=== PATIENT | female | born 1950 | race Caucasian/White ===

== ENCOUNTER → 2020-09-26 | Outpatient (CLI) | payer OTHER ==
[~2020-09-26] MED LIST: ALLER-EASE180 MG PO; BENICAR20 MG PO; CALCIUM 500 +1 EAC1 PO; GLUMETZA500 PO; IBUPROFEN 400400 M1 PO; LEVOXYL100 MCG PO; MULTI VITAMIN1 EACH PO; TYLENOL EXTRA500 MG PO; WELLBUTRIN SR150 M1 PO
== END ==
LOC: LAB 13:44
PROVIDERS: ATTEND Orthopaedic Surgery
DX: Z01.812 Encounter for preprocedural laboratory examination (principal); Z20.822 Contact with and (suspected) exposure to COVID-19

== ENCOUNTER → 2020-10-15 | Outpatient (CLI) | payer OTHER ==
[~2020-10-15] MED LIST changes: +GABAPENTIN 100100 MG PO
== END ==
LOC: LAB 08:13
PROVIDERS: ATTEND Orthopaedic Surgery
DX: Z01.812 Encounter for preprocedural laboratory examination (principal); Z20.822 Contact with and (suspected) exposure to COVID-19

== ENCOUNTER 2020-10-18 07:24 | Day surgery (SDC) | payer OTHER ==
[2020-09-26 13:22] LABS: HEMATOCRIT 45.4 % (37.0-47.0); HEMOGLOBIN 14.9 gm/dL (12.0-15.0); MCH 31.4 pg (26.0-34.0); MCHC 32.8 g/dL (28.0-37.0); MCV 95.6 fL (80.0-100.0); RBC 4.74 mil/uL (4.20-5.00); RDW 14.5 % (10.5-14.5); URINE BILIRUBIN NEGATIVE (Negative); URINE BLOOD NEGATIVE (Negative); URINE CLARITY CLEAR; URINE COLOR YELLOW; URINE GLUCOSE-RANDOM* NEGATIVE (Negative); URINE KETONES TRACE (Negative); URINE LEUKOCYTES-REFLEX NEGATIVE (Negative); URINE NITRITE-REFLEX NEGATIVE (Negative); URINE PROTEIN (DIPSTICK) NEGATIVE (Negative); URINE SPECIFIC GRAVITY 1.025 (1.005-1.035); URINE UROBILINOGEN 0.2 E.U./dl (0.2-1.0); WBC 9.7 thou/uL (4.0-11.0)
[2020-09-26 13:30] LABS: ALBUMIN 4.3 g/dL (3.4-5.0); CALCIUM 9.8 mg/dL (8.5-10.1)
[2020-09-26 13:37] LABS: PROTIME 11.2 Seconds (9.3-11.4)
[2020-09-26 22:06] LABS: GLYCOHEMOGLOBIN (HGB A1C) 6.2 % (4.8-5.6)
--- NOTE | 2020-09-27 07:16 | EKG ---
[address] [address] ELECTROCARDIOGRAM REPORT Name: NEGRITO GARCIA Room #: [facility]#: [id number] Admission: Attend Phys: Daniel James MD Discharge: Date of : 48 Report #: [id number] [facility] Test Date: 2020-09-26 Test Time: 13:11:27 Pat Name: NEGRITO GARCIA Department: Room: Gender: F Hot Oiler: Padma GUZMAN : 1950 Requested By: Daniel James Order Number: [id number] MD: Bruno Piedra Measurements Intervals [place] Rate: 81 P: 51 WV: 194 QRS: -41 QRSD: 95 T: 25 QT: 387 QTc: 450 Interpretive Statements Sinus rhythm Inferior infarct, old No previous ECG available for comparison Electronically Signed On 09-27-2020 7:15:54 CDT by Bruno Piedra [email or web address] <ELECTRONICALLY SIGNED> By: Bruno Piedra MD, [facility] 09/27/20 0715 1311 1311 Bruno Piedra MD, FACC /EPI
[2020-10-18] VITALS (7 sets, daily range): BP systolic 127–169; BP diastolic 76–97
[~2020-10-18] VITALS: Ht 160 cm; Wt 99.3 kg
--- NOTE | ~2020-10-18 | O ---
[facility] [place] [address] OPERATIVE REPORT Name: NEGRITO DICKSON Room #: 150-6 [facility].#: [id number] Admission: 10/18/20 Attend Phys: Daniel James MD Discharge: Date of : 48 Report #: [id number] THIS REPORT FOR: cc: Johanna Paetl MD, Karol L. MD Abraham,Daniel Vazquez MD ~ DATE OF SERVICE: 10/18/2020 PREOPERATIVE DIAGNOSIS: Right knee osteoarthritis. POSTOPERATIVE DIAGNOSIS: Right knee osteoarthritis. PROCEDURE: Right total knee arthroplasty using Navio robotic assistant associate professor. SURGEON: Daniel James MD. PRESSURE SUPERVISOR: Hallie Pulliam PA-C. INDICATIONS FOR PRESSURE SUPERVISOR: Throughout the case, extensive retraction and manipulation of the knee was required. This was afforded to me by my assistant associate professor. ANESTHESIA: LMA with an adductor canal block. IMPLANTS: [employer] size 4 Journey II BCS cobalt chrome femur, size 3 tibia, size 10 polyethylene, size 29 patella. TOURNIQUET TIME: 51 minutes. ESTIMATED BLOOD LOSS: 25 mL. COMPLICATIONS: None. SPECIMENS: None. CONDITION UPON LEAVING THE OPERATING ROOM: Stable. INDICATIONS FOR PROCEDURE: The patient is a 69-year-old female with right knee osteoarthritis. She had failed conservative measures for this and after discussion with her, she elected for right total knee arthroplasty. DESCRIPTION OF PROCEDURE: Risks, benefits, alternatives, complications were discussed in detail with the patient including but not limited to risk of anesthesia, risk of damage to nerves, arteries, blood vessels, risk for infection, bleeding, risk for continued knee pain and need for reoperation. Informed consent was obtained from the patient. Right knee was appropriately [address] [place] [address] OPERATIVE REPORT Name: NEGRITO DICKSON Room #: 150-6 [facility] Reji#: [id number] Admission: 10/18/20 Attend Phys: Daniel James MD Discharge: Date of : 48 Report #: [id number] marked in the preoperative holding area. IV Ancef was given for preoperative antibiotics. She was brought to the operating room and placed in the supine position on the operating room table. LMA anesthesia was induced without complication. Tourniquet was placed on the right thigh. Right lower extremity was prepped and draped in normal sterile fashion. Timeout was performed properly identifying the patient and procedure as well as the instrumentation and implants. All in the operating room were in agreement. Right lower extremity was exsanguinated, tourniquet was inflated. Tourniquet time was 51 minutes. Standard midline approach to the knee was made with 10 blade through the skin. Dissection was taken down sharply to the fascia and deep flaps were developed medially and laterally. Fresh 10 blade was used to make a medial parapatellar arthrotomy and the knee was inspected. There was [id number] tricompartmental osteoarthritis. ACL and PCL were removed sharply. Reference pins were placed in the femur and the tibia. Knee was then digitally mapped using the [employer] robotic system. Intraoperative plan was made, and we sized the size 4 femur, the size 3 tibia and a 10 spacer. After acceptance of the intraoperative plan, distal femoral cut was made with a Navio bur. Distal femoral cutting block was pinned in place and chamfer cuts were made. Attention was turned to the tibia. Remainder of the menisci removed with Bovie cautery. Tibial resection guide was pinned in place using the Navio for placement and tibial resection was made. Flexion and extension gaps were then checked and found to have equal balance in flexion and extension both medially and laterally. Tibia was sized, found to be a size 3. A size 3 tibial trial was placed, pinned and punched. Size 4 femoral trial was placed and the box cut was made. This was then trialed with a size 10 polyethylene. Size 10 polyethylene demonstrated 1-2 millimeter of laxity medially and laterally throughout range of motion of the knee. A 9 mm of bone was resected from the posterior surface of the patella and a size 29 patellar trial button was placed. Knee was taken through range of motion, found to be stable, found to have good patellar tracking. Trial components were removed. Bony ends were thoroughly irrigated with normal saline. A final size 3 tibia, size 4 Journey II BCS cobalt chrome femur and a size 29 patella were cemented in place using standard cementation techniques. While the cement cured, a periarticular injection consisting of morphine, ropivacaine, epinephrine, Toradol was placed around the knee joint capsule. After the cement cured, tourniquet was deflated. Hemostasis was obtained with Bovie cautery. Final size 10 polyethylene was placed. A gram of vancomycin was placed deep in the joint. Fascia was closed with 0 Vicryl, skin was closed with 2-0 Vicryl, skin staple and a GABINO dressing was applied. The patient tolerated this procedure well and went to recovery room under care of anesthesia postoperatively. By: 1132 1213 Daniel James MD /nt
--- NOTE | 2020-10-18 14:35 | NUR ---
ASSUMED PT CARE AROUND 1230. PT ALERT X ORIENTED X 4. ON 2L/O2/NC. IV RT HAND /D5NNS/100ML/HR.GABINO DRESSING IN PLACE. SCDS/TEDS ON. PT DAUGHTER IN THE ROOM. TOLERATING FLUIDS. ATE SANDWICH FOR LUNCH. FALL PRECAUTION IN PLACE. CALL LIGHT IN REACH. WAITING FOR PT EVALUATION. WILL CONTINUE TO MONITOR.
[2020-10-19] VITALS (9 sets, daily range): BP systolic 101–145; BP diastolic 63–80
--- NOTE | 2020-10-19 00:27 | NUR ---
ASSESSED AT START OF SHIFT. PT A&OX4 RATES PAIN 07/22 DENIES N/V. RT KNEE DRESSING C/D/I. GABINO DRESSING, POLAR PACK, SCD'S IN PLACE. PT UP WITH ASSITX1. EVENING MEDS GIVEN AND PT MERLE IT WELL. FALL PREC IN PLACE AND CALL LIGHT AT REACH. PT WEARS CPAP AT NIGHT TIME AND ON 2L O2. WILL CONT WITH POC TILL EOS.
[2020-10-19 04:50] LABS: HEMATOCRIT 35.7 % (37.0-47.0); HEMOGLOBIN 11.9 gm/dL (12.0-15.0); MCH 32.3 pg (26.0-34.0); MCHC 33.4 g/dL (28.0-37.0); MCV 96.8 fL (80.0-100.0); RBC 3.69 mil/uL (4.20-5.00); RDW 14.4 % (10.5-14.5); WBC 10.8 thou/uL (4.0-11.0)
--- NOTE | 2020-10-19 09:37 | NUR ---
ASSESSMENT: CM REVIEWED CHART AND MET WITH PATIENT AT THE BEDSIDE. PT IS ALERT AND ORIENTED X4. PT IS S/P R TKR. PT REPORTS THAT SHE LIVES IN A HOUSE WITH HER SON AND HAS NO STEPS TO GET IN OR ONCE INSIDE. PT REPORTS THAT SHE HAS NO DME AT HOME BUT DOES HAVE A CPAP. CM DISCUSSED LIKELY NEED FOR A WALKER AND SHE REPORTS SHE HAS NO PREFERENCE OF DME COMPANY. CM NOTIFIED LIASON AT [employer] WHO REPORTS SHE WILL DELIVER A WALKER TO PATIENTS ROOM. PT REPORTS SHE HAS OUTPATIENT THERAPY ARRANGED AT [facility] STARTING ON THURSDAY. PT IS TO WORK WITH THERAPY TODAY. CM WILL CONTINUE TO FOLLOW TO ASSIST NEEDED. PT DOES NOT ANTICIPATE HAVING ANY NEEDS AT DISCHARGE.
--- NOTE | 2020-10-19 11:17 | NUR ---
ASSUMED PT CARE THIS AM. PT IS ALERT & ORIENTED X4. PT HAS IV SITE ON R FA. PT USES BEDSIDE COMMODE. PT DENIES PAIN, NAUSEA AND VOMITING. PT IS ACCUCHECK ACHS. PT HAS GABINO DRESSING, [employer], AND POLAR PACK. PT IS CURRENTLY ON THE CHAIR. PT WILL BE WORKING WITH PT THIS AFTERNOON FOR POSSIBLE DC TODAY. WILL CONTINUE TO MONITOR PT. FOLLOW POC.
--- NOTE | 2020-10-20 02:34 | NUR ---
ASSUMED CARE AT 1900. PT IS A/O X4 AND IS UP WITH ASSISTANCE TO THE BSC. 2 LITERS NC WITH A CONTINOUS PULSE OX IN PLACE. VSS. DRSG TO RIGHT KNEE IS C/D/I. NO C/O NAUSEA THIS SHIFT. C/O PAIN. SCHEDULED PAIN MEDICATION GIVEN WITH PARTIAL RELIEF NOTED. FALL PRECAUTIONS IN PLACE, CALL LIGHT IS WITHIN REACH.
[2020-10-20 05:44] LABS: HEMATOCRIT 37.3 % (37.0-47.0); HEMOGLOBIN 12.3 gm/dL (12.0-15.0); MCH 32.1 pg (26.0-34.0); MCV 97.3 fL (80.0-100.0); RBC 3.84 mil/uL (4.20-5.00); RDW 14.8 % (10.5-14.5); WBC 9.7 thou/uL (4.0-11.0)
[2020-10-20 08:10] VITALS: BP 114/77
--- NOTE | 2020-10-20 11:09 | NUR ---
Assumed care of pt at 0700. Pt a&ox4. Dressing c/d/i. Pain controlled with prn pain meds. Pt states she wants to work with physical therapy this am and hopefully go home today. Up with gaitbelt and walker. Call light within reach. Fall precautions in place. Will continue to monitor.
== END 2020-10-20 14:34 | disposition home or self-care (01) ==
LOC: TBA 07:24 → OR 07:24 → TBA 07:25 → 4S 12:26 → OR 15:49
PROVIDERS: ATTEND Orthopaedic Surgery
DX: M17.11 Unilateral primary osteoarthritis, right knee (principal); M25.561 Pain in right knee; I10 Essential (primary) hypertension; E11.9 Type 2 diabetes mellitus without complications; F32.9 Major depressive disorder, single episode, unspecified; G47.30 Sleep apnea, unspecified; E03.9 Hypothyroidism, unspecified; K21.9 Gastro-esophageal reflux disease without esophagitis; Z98.890 Other specified postprocedural states; Z79.899 Other long term (current) drug therapy; Z96.652 Presence of left artificial knee joint; Z90.49 Acquired absence of other specified parts of digestive tract; Z85.3 Personal history of malignant neoplasm of breast; Z85.41 Personal history of malignant neoplasm of cervix uteri; Z88.2 Allergy status to sulfonamides; Z88.8 Allergy status to other drugs, medicaments and biological substances
CPT/HCPCS: 50010; 50101; 50415; 50954; 51130; 51225; 51320; 51412; 52001; 52282; 53000; 53078; 54118; 56527; 56528; 57095; 57103; 57110; 57127; 57180; 58239; 62110; 62900; 64039; 70005